=== PATIENT | male | born 1975 | race African-American/Black ===

== ENCOUNTER 2018-10-11 05:16 | Emergency (ER) | payer MEDICAID ==
[~2018-10-11] VITALS: Ht 190.5 cm; Wt 90.7 kg
--- NOTE | 2018-10-11 05:25 | NUR ---
[id number] C/O ETOH/NOT TAKING SEIZURE MEDS, PATIENT STATES HE FEELS LIKE HE IS GOING TO HAVE A SEIZURE. BS128, AOX4. RR EVEN AND UNLABORED. NO SOB NOTED. NO NVD AT THIS TIME. PT NOT DIAPHORETIC. PER RA PLACED IV ON LEFT AC 18G, INTACT AND PATENT. PT PLACED ON SEIZURE PRECAUTION. PT GGOWNED AND PLACED ON MONITOR WAITING FOR MD PLUNKETT.
--- NOTE | 2018-10-11 06:15 | NUR ---
DR. BLANDON AT BEDSIDE FOR EVAL
[2018-10-11] MEDS ORDERED: LEVETIRACETAM (250 MG) 250 MG TABLET PO ONE ×2 (06:19→06:30)
--- NOTE | 2018-10-11 07:20 | NUR ---
REPORT RECEIVED FROM BELGICA KENNEDY FOR NANY
--- NOTE | 2018-10-11 07:27 | NUR ---
REPORT GIVEN TO MARCIA PAULINO. NO ACUTE DISTRESS NOTED.
--- NOTE | 2018-10-11 08:32 | NUR ---
PT IN BED ASLEEP, EASILY AROUSABLE BY VOICE. TUCKED IN BLANKET, HOOKED TO MONITOR, VSS. KEPT WARM AND SAFE. SEIZURE PRECAUTIONS MAINTAINED.
--- NOTE | 2018-10-11 09:43 | NUR ---
PT ASLEEP IN BED, EASILY AROUSABLE BY VOICE. HOOKED TO MONITOR, VSS. WILL CONTINUE TO MONITOR.
--- NOTE | 2018-10-11 10:53 | NUR ---
PROVIDED W BREAKFAST TRAY.
--- NOTE | 2018-10-11 11:30 | NUR ---
IV removed. Catheter intact and site benign. Pressure and 4x4 applied to site. No bleeding noted.
--- NOTE | 2018-10-11 11:32 | NUR ---
Pt refusing to be discharged. Security at bedside. Charge nurse and MD aware.
--- NOTE | 2018-10-11 12:06 | NUR ---
Patient given written and verbal discharge instructions. Patient verbalizes understanding of instructions. Patient wheeled out via wheelchair. Refuses offer of detention placement. Patient given list of available shelters in surrounding area. ID band removed. Provided with Tap Card. Pt appropriately dressed w shirt, jacket and shorts and rubber shoes. Pt signed Homeless discharge waiver. Assisted pt to waiting room by security.
--- NOTE | 2018-10-11 12:07 | NUR ---
CALLED [facility], CARD ROOM MANAGER [id number] IS DISPATCHING A UNIT FOR PT REFUSING TO LEAVE PREMISES.
[2018-10-11 12:11] VITALS: BP 142/78
== END 2018-10-11 12:10 | disposition home or self-care (01) ==
LOC: ER 05:18
DX: F10.10 Alcohol abuse, uncomplicated (principal); R56.9 Unspecified convulsions; Z59.0 Homelessness; Y90.9 Presence of alcohol in blood, level not specified